=== PATIENT | female | born 1965 | race Caucasian/White ===

== ENCOUNTER 2018-05-03 08:03 | Outpatient (CLI) | payer BC, SELFPAY ==
[2018-05-03 08:25] LABS: Abs Immature Grans 0.01 k/cumm (0.0-0.09); Absolute Basophil Count 0.02 k/cumm (0.0-0.2); Absolute Eosinophil Count 0.08 k/cumm (0.0-0.7); Absolute Lymphocyte Count 1.67 k/cumm (1.2-3.4); Absolute Monocyte Count 0.36 k/cumm (0.11-0.7); Absolute Neutrophil Count 3.32 k/cumm (1.2-6.7); Basophils % 0.4; Eosinophils % 1.5; HCT 38.7 % (36.0-46.0); HGB 12.6 g/dL (12.0-15.5); Immature Grans % 0.2; Lymphocytes % 30.6; Mean Corp. HGB Concentration 32.6 g/dL (32.0-36.0); Mean Corpuscular Volume 92.1 fL (80-95); Mean Platelet Volume 9.4 fL (8.0-11.0); Monocytes % 6.6; Neutrophils % 60.7; Platelet Count 294 x1000/uL (130-400); RBC Distribution Width 12.2 % (11.7-14.6); White Blood Cell Count 5.46 k/cumm (4.4-10.8)
[2018-05-03 09:44] LABS: ALT 26 U/L (12-78); AST 21 U/L (15-37); Albumin 3.7 g/dL (3.4-5.0); Alkaline Phosphatase 93 U/L (46-116); Anion Gap 8.3 mmol/L (3-11); BUN 12 mg/dL (7-18); Bilirubin, Total 0.4 mg/dL (0.2-1.0); CO2 30.7 mmol/L (21.0-32.0); CREATININE 0.73 mg/dL (0.55-1.02); Calcium 9.3 mg/dL (8.5-10.1); Chloride 100 mmol/L (98-107); Glucose 87 mg/dL (70-100); Sodium 139 mmol/L (136-145); Total Protein 6.8 g/dL (6.4-8.2)
[2018-05-05 09:59] LABS: IgA 232 mg/dL (85-499); Interpretation SEE COMMENTS; Tissue Transglutaminase IgA <1.2 U/mL (<4.0)
== END 2018-05-03 08:23 ==
PROVIDERS: PCP Family Medicine; Visit Provider Family Medicine
DX: R19.7 Diarrhea, unspecified (principal)
CPT/HCPCS: 36415; 80053; 82784; 83516; 85025

== ENCOUNTER 2021-05-29 17:41 | Outpatient (REF) | payer BC, SELFPAY ==
--- NOTE | 2021-05-29 14:45 | PAPFT_PTH ---
PATIENT: Rubi Ingram LOC: [facility]#:[id number] AGE/SX: 56/F ROOM: RE05/29/[address]: Tamika Valencia : 1965 BED: DIS: 05/29/2021 SPEC #: [id number] RECD: 05/29/21 18:01 STATUS: MARY ANN REQ #: [id number] SHAMA: 05/29/21 14:[address]: Tamika Valencia DEPT: [facility] Cytology RECD BY: Anca Shelley Tissues: 1 - CX/ENDOCX FOR PAP SMEARS Procedures: PAP THIN PREP/[facility] Screening Comments: [id number] (UNSATISFACTORY FOR EVALUATION)
== END 2021-05-29 17:42 | disposition home or self-care (01) ==
LOC: LBN 17:41
PROVIDERS: PCP Family Medicine; Visit Provider Family Medicine
DX: Z12.4 Encounter for screening for malignant neoplasm of cervix (principal); R87.615 Unsatisfactory cytologic smear of cervix
CPT/HCPCS: 88142

== ENCOUNTER 2022-01-19 16:44 | Outpatient (REF) | payer BC, SELFPAY | END 2022-01-19 16:45 | disposition home or self-care (01) | LOC: LBN 16:44 | PROVIDERS: PCP Family Medicine; Visit Provider Family Medicine | DX: J02.9 Acute pharyngitis, unspecified (principal) | CPT/HCPCS: 87070 ==

== ENCOUNTER 2022-05-31 10:05 | Outpatient (CLI) | payer BC, SELFPAY ==
[2022-05-31 13:47] LABS: Calculated LDL 127 mg/dL (<100); Cholesterol 228 mg/dL (<200); HDL Cholesterol 74 mg/dL (40-60); Triglyceride 138 mg/dL (<150)
== END 2022-05-31 10:06 | disposition home or self-care (01) ==
LOC: LOS 10:06
PROVIDERS: PCP Family Medicine; Referring Provider Family Medicine; Visit Provider Family Medicine
DX: Z00.00 Encounter for general adult medical examination without abnormal findings (principal); Z13.220 Encounter for screening for lipoid disorders
CPT/HCPCS: 36415; 80061

== ENCOUNTER 2025-06-27 08:06 | Outpatient (CLI) | payer BC, SELFPAY ==
[2025-06-27 14:33] LABS: HCT 38.5 % (36.0-46.0); HGB 12.2 g/dL (11.2-15.7); MCH 29.5 pg (27.0-33.0); MCHC 31.7 % (32.0-36.0); MCV 93 fL (80-95); RBC 4.14 10^6/uL (3.93-5.22); RDW 12.3 % (11.7-14.6); RDW-SD 42.5 fL; WBC 5.99 10^3/uL (4.4-10.8)
[2025-06-27 14:34] LABS: Immature Grans % 0.3 %; MPV 9.7 fL (8.0-11.0); Platelet Count 332 10^3/uL (130-400)
[2025-06-27 15:30] LABS: TSH (W/Ref FT4) 2.28 uIU/mL (0.55-4.78)
[2025-06-27 15:39] LABS: ALT 15 U/L (10-49); AST 20 U/L (<34); Albumin 4.2 g/dL (3.2-5.0); Alkaline Phosphatase 65 U/L (46-116); Anion Gap 11 mmol/L (3-11); BUN 17 mg/dL (9-23); Bilirubin, Total 0.6 mg/dL (0.2-1.2); CO2 26.0 mmol/L (20.0-31.0); Calcium 9.1 mg/dL (8.3-10.6); Chloride 106 mmol/L (98-107); Cholesterol 238 mg/dL (<200); Glucose 89 mg/dL (74-106); HDL Cholesterol 86 mg/dL (>or=50); Potassium 3.9 mmol/L (3.5-5.1); Sodium 143 mmol/L (136-145); Total Protein 6.9 g/dL (5.7-8.2)
[2025-06-27 15:58] LABS: Vitamin B12 338 pg/mL (211-911)
== END 2025-06-27 08:07 | disposition home or self-care (01) ==
LOC: LBO 08:06
PROVIDERS: PCP Family Medicine; Visit Provider Family Medicine
DX: R53.83 Other fatigue (principal); Z13.6 Encounter for screening for cardiovascular disorders; E03.9 Hypothyroidism, unspecified; Z00.00 Encounter for general adult medical examination without abnormal findings
CPT/HCPCS: 36415; 80053; 80061; 82607; 84443; 85025